=== PATIENT | female | born 1975 | race Caucasian/White ===

== ENCOUNTER 2018-12-24 16:11 | Emergency (ER) | payer BC, MEDICARE ==
[~2018-12-24] VITALS: Ht 160 cm; Wt 75.8 kg
[~2018-12-24 16:11] MED LIST: AMITRIPTYLINE H25 M2; AMITRIPTYLINE H25 M2 PO; CARISOPRODOL 3350 MG PO; CHANTIX1 MG PO; CIPRO250 M1 PO; DILAUDID 2 MG TA2 MG PO; ENDOCET 10-3251 EACH PO; ENJUVIA; FIORICET 50-321 EACH PO; FLEXERIL PO; HYDROCODON-ACE1 EAC5 PO; HYDROCODON-ACE1 EAC7; HYDROCODONE-AP1 EAC6 PO; IBUPROFEN 800800 M1 PO; IBUPROFEN PO; OXYCONTIN20 M1 PO; PHENERGAN25 M2 RE; PROMETHAZINE12.5 M1 PO
[2018-12-24 16:18] VITALS: BP 151/94
[2018-12-24] MEDS ORDERED: PERCOCET 10-321 EACH PO (16:21)
[2018-12-24] MEDS ORDERED: IBUPROFEN 800800 M1 PO (16:22)
[2018-12-24] MEDS ORDERED: ZANAFLEX4 MG PO (16:28)
[2018-12-24] MEDS ORDERED: MEDROLDOSEPACK PO (16:28)
== END 2018-12-24 16:44 | disposition home or self-care (01) ==
LOC: M.ERS 16:11
DX: M54.16 Radiculopathy, lumbar region (principal); Z90.710 Acquired absence of both cervix and uterus; Z98.890 Other specified postprocedural states; F17.210 Nicotine dependence, cigarettes, uncomplicated; Z91.041 Radiographic dye allergy status

== ENCOUNTER 2020-09-14 13:48 | Emergency (ER) | payer OTHER, BC, MEDICARE ==
[~2020-09-14] VITALS: Ht 160 cm; Wt 86.2 kg
[~2020-09-14 13:48] MED LIST changes: +MEDROLDOSEPACK PO; +PERCOCET 10-321 EACH PO; +ZANAFLEX4 MG PO
[2020-09-14] MEDS ORDERED: FISH OIL 1,001000 M2 PO (14:12)
[2020-09-14 17:24] VITALS: BP 145/88
== END 2020-09-14 17:25 | disposition home or self-care (01) ==
LOC: M.ERS 13:48
DX: S16.1XXA Strain of muscle, fascia and tendon at neck level, initial encounter (principal); F17.210 Nicotine dependence, cigarettes, uncomplicated; Z90.710 Acquired absence of both cervix and uterus; Z98.890 Other specified postprocedural states; Z98.51 Tubal ligation status; Z91.041 Radiographic dye allergy status; V89.2XXA Person injured in unspecified motor-vehicle accident, traffic, initial encounter; Y93.89 Activity, other specified; Y92.89 Other specified places as the place of occurrence of the external cause; Y99.8 Other external cause status